=== PATIENT | female | born 1990 | race Caucasian/White ===

== ENCOUNTER 2016-07-10 03:31 | Emergency (ER) | payer SELFPAY ==
[~2016-07-10] VITALS: Ht 160 cm; Wt 44.5 kg
[2016-07-10 03:59] VITALS: BP 159/100
[2016-07-10] MEDS ORDERED: BUPIVACAINE 0.5% 50 ML VIAL. ONE (04:28)
[2016-07-10] MEDS ORDERED: IBUPROFEN 400 MG TABLET. PO ONE (04:45)
[2016-07-10] MEDS ORDERED: BUPIVACAINE MPF 0.25% 10 ML VIAL. IJ ONE (04:45)
--- NOTE | 2016-07-10 04:47 | PHYS DOC ---
Past Medical History Past Medical History: Other Additional Past Medical Histor: gallbladder disease Past Surgical History: No Surgical History Alcohol Use: None Drug Use: Methamphetamine Adult General Chief Complaint Chief Complaint: DENTAL PROBLEM HPI HPI Patient is a 26 year old female who presents with dental pain to right upper anterior molar after part of her tooth breaking off of urine today while eating. States pain is constant, gradually worsening, sharp, radiating towards her ear. She denies facial swelling, fever or chills, difficulty breathing, difficulty speaking, difficulty swallowing. No trauma. Review of Systems Review of Systems Constitutional: Denies fever or chills [] Eyes: Denies change in visual acuity, redness, or eye pain [] HENT: Denies nasal congestion or sore throat [] Respiratory: Denies cough or shortness of breath [] Cardiovascular: No additional information not addressed in HPI [] GI: Denies abdominal pain, nausea, vomiting, bloody stools or diarrhea [] : Denies dysuria or hematuria [] Musculoskeletal: Denies back pain or joint pain [] Integument: Denies rash or skin lesions [] Neurologic: Denies headache, focal weakness or sensory changes [] Endocrine: Denies polyuria or polydipsia [] Current Medications Current Medications Current Medications Medications (Trade) Dose Ordered Sig/Aditi Start Time Stop Time Status Last Admin Dose Admin Bupivacaine HCl (Marcaine 0.5%) 50 ml STK-MED ONCE 07/10/16 04:28 07/10/16 04:29 DC Bupivacaine HCl (Sensorcaine-Mpf 0.25%) 10 ml 1X ONCE 07/10/16 04:45 07/10/16 04:46 DC 07/10/16 04:38 10 ML Ibuprofen (Motrin) 400 mg 1X ONCE 07/10/16 04:45 07/10/16 04:46 DC 07/10/16 04:34 400 MG Allergies Allergies Allergies Coded Allergies Type Severity Reaction Last Updated Verified Penicillins Allergy Unknown 09/18/13 No Physical Exam Physical Exam Constitutional: Well developed, well nourished, no acute distress, non-toxic appearance. [] HENT: Normocephalic, atraumatic, bilateral external ears normal, oropharynx moist, no oral exudates, nose normal. Terrible dentition with multiple dental caries. No gumline tenderness, swelling or discoloration; No stridor, change of voice, tongue swelling, trismus, or drooling; Uvula is midline and floor is nontender [] Eyes: PERRLA, EOMI. [] Neck: Normal range of motion, no tenderness, supple. [] Cardiovascular:Heart rate regular rhythm [] Lungs & Thorax: Bilateral breath sounds clear to auscultation [] Abdomen: Bowel sounds normal, soft, no tenderness. [] Skin: Warm, dry, no erythema, no rash. [] Back: Normal range of motion. [] Extremities: No tenderness, ROM intact. [] Neurologic: Alert and oriented X 3, normal motor function, normal sensory function, no focal deficits noted. [] Psychologic: Affect normal, judgement normal, mood normal. [] Current Patient Data Vital Signs Vital Signs Date Time Temp Pulse Resp B/P Pulse Ox O2 Delivery O2 Flow Rate FiO2 07/10/16 03:59 97.8 97 16 100 Room Air 97.8 Course & Med Decision Making Course & Med Decision Making Dental block performed with improvement in symptoms. Dental resources given. Return precautions given. She understands and agrees with plan. Dragon Disclaimer Dragon Disclaimer This electronic medical record was generated, in whole or in part, using a voice recognition dictation system. PROCEDURE Procedure Left upper dental nerve block performed at [facility] with bupivacaine, 4 mL, no complications, adequate anesthesia, verbal consent given Departure Departure Impression: Primary Impression: Pain due to dental caries Disposition: HOME, SELF-CARE Condition: STABLE Referrals: NO PCP (PCP) Patient Instructions: Dental Caries-Brief Additional Instructions: Take tylenol or ibuprofen as needed for pain. Follow up with a dentist. Return for any concerns. Bryan MENJIVAR MD Jul 10, 2016 04:47
== END 2016-07-10 04:56 | disposition home or self-care (01) ==
LOC: ER 03:31
DX: K02.9 Dental caries, unspecified (principal); F15.10 Other stimulant abuse, uncomplicated; Z88.0 Allergy status to penicillin
CPT/HCPCS: 64400; 99284; J3490